=== PATIENT | male | born 1965 | race Caucasian/White ===

== ENCOUNTER 2017-01-27 14:45 | Emergency (ER) | payer OTHER ==
--- NOTE | 2017-01-27 16:48 | ED CLINICAL REPORT ---
Clinical Report - Physicians/Mid Levels [facility] [address] [place] [address] 01/27/2017 14:48 Patient: CAIT SOLARES Time Seen: 15:41; initial patient contact, initial documentation, patient care assumed. Arrived- By private vehicle. Historian- patient. HISTORY OF PRESENT ILLNESS Chief Complaint: ABDOMINAL PAIN. At its maximum, severity described as mild. When seen in the E.D., severity described as mild. Modifying factors. Not worsened by anything. Not relieved by anything. It is described as "pain". No radiation. It is described as located in the left pelvis. This started about 3 years ago and is still present. No nausea, loss of appetite, vomiting or diarrhea. No additional abdominal pain. (pt telling me and nurse, that he came because he wants surgery done now, and he can't have surgery done unless he has place to stay after, he is homeless, but says he has RV, but police won't let him park it anywhere, says he saw Dr Lynne in Jul and was dx with the hernia and was told it needed surgery, but he didn't do surgery then due to money and having no help or place to stay after). No recent travel. Similar symptoms previously: Chronically, as bad. Recent medical care: The patient was seen recently in a clinic. ( went to clinic next door and now here). REVIEW OF SYSTEMS No constipation, black stools, hematemesis, difficulty with urination or pain with urination. No urinary frequency, bloody stools, fever, chest pain or difficulty breathing. All systems otherwise negative, except as recorded above. PAST HISTORY See nurses notes. PROBLEMS: Lifestyle / Substance Problems. URI. COPD - Chronic Obstructive Pulmonary Disease. Immunizations. Hypertension. --15:30 Moy Mills R.N. SOCIAL HISTORY Heavy tobacco smoker. Occasional alcohol use. History of drug use: marijuana. No recent travel. Is a local resident. FAMILY HISTORY Negative. ADDITIONAL NOTES The nursing notes have been reviewed with agreement regarding the chief complaint, HPI, ROS, PMH and patient medications and allergies. PHYSICAL EXAM Vital Signs: 01/27/2017 15:22 BP: 118/76. HR: 66. RR: 20. O2 saturation: 98%. Temp: 97.6 F. Have been reviewed as normal and appear to be correct. Appearance: Alert. Oriented X3. No acute distress. Anxious. (pt agitated, cussing and restless in room). Eyes: Pupils equal, round and reactive to light. Eyes normal inspection. Neck: Normal inspection. Neck supple. CVS: Normal heart rate and rhythm. Heart sounds normal. Pulses normal. Respiratory: No respiratory distress. Breath sounds normal. Chest nontender. Abdomen: Soft and nontender. Bowel sounds normal. No organomegaly. Small mass present in the left lower quadrant. No tender or pulsatile mass present. No guarding present. Mass present. Back: Normal inspection. Skin: Skin warm and dry. Normal skin color. No rash. Normal skin turgor. Extremities: Extremities exhibit normal ROM. No lower extremity edema. Neuro: Oriented X 3. No motor deficit. No sensory deficit. LABS, X-RAYS, AND EKG Pelvic Sonogram: . 1.4 cm L inguinal hernia, no bowel incarceration or strangulation, verbal report given by [employer] deven Fletcher. 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 Dr Newton called re US report, possible hernia vs fat. 01/27/2017 17:02 BP: 122/80. HR: 64. RR: 20. O2 saturation: 96%. Temp: 98.6 F. Vital Signs: have been reviewed as normal and appear to be correct. Patient counseled in person regarding the patient's stable condition, test results and diagnosis. Differential Diagnosis: Other possible considerations: inguinal hernia, incarcerated hernia, strangulation of bowel, abscess, fatty tumor, lymphadenopathy. Above considerations are based on history, physical exam, reassessment and other information. Differential diagnosis was discussed with patient. Disposition: Discharged home in good and unchanged condition (16:48). Condition: good and stable. CLINICAL IMPRESSION Recurrent left inguinal hernia. No reducible hernia, incarcerated hernia, obstruction or gangrene. INSTRUCTIONS Warnings: GENERAL WARNINGS: Return or contact your physician immediately if your condition worsens or changes unexpectedly, if not improving as expected, or if other problems arise. SPECIFICALLY, return if you develop pain in the abdomen, fever, the inability to keep fluids down, blood in vomitus, blood in diarrhea, fainting or lightheadedness. Prescription Medications: Naprosyn 500 mg tablets: take 1 orally every 12 hours as needed for pain. Dispense twenty (20). No refills. Substitution is permissible. Understanding of the discharge instructions verbalized by patient. Follow-up with: Dustin Lynne MD, General Surgeon, , [facility], [address] [place] [address] Follow up in about three days even if well. Call for an appointment. Summary of care provided to patient. (Electronically signed by Radha Guillory A.R.N.P. 01/27/2017 17:13)
--- NOTE | 2017-01-27 16:48 | ED ORDER SUMMARY ---
..... Patient: CAIT SOLARES OrderSheet [facility] VisitID: [id number] [place] [address] 51y, M Registration Date/Time: 01/27/2017 ORDER SHEET Weight: 71.6 kg (stated) Allergies: No Known Drug Allergy GENERAL ORDERS: US Pelvic Complete Urgent (15:57 01/27/2017 HBivenkrista A.R.N.P.) (Ack 16:10 PWeiler ER Tech1) (16:48 PWeiler ER Tech1) MEDICATION ORDERS: IV FLUIDS: ORDER SHEET NOTES: [Electronically signed by Radha GuilloryR.N.PJulius (17:13 01/27/2017)] [Electronically signed by Moy Mills R.N. (12:57 01/28/2017)] [Electronically locked/signed by Moy Mills R.N. (12:57 01/28/2017)]
--- NOTE | 2017-01-27 16:48 | ED NURSING NOTES ---
Clinical Report - Nurses [facility] [address] [address] 01/27/2017 14:48 [id number] Triage time 15:22. Acuity: LEVEL 3. Alert. No acute distress. --15:33 Moy Mills R.N. 15:22 01/27/17. BP: 118/76. HR: 66. RR: 20. O2 saturation: 98%. Temp: 97.6 F. Pain level now 0/10. --15:33 Moy Mills R.N. Chief Complaint: (Hernia). --17:06 Moy Mills R.N. Weight: 71.6 kg stated. Height/Length: 67 inches Per Patient. BMI: 24.7. --15:31 Moy Mills R.N. Medications Acetaminophen Oral. --15:25 Moy Mills R.N. Allergies No Known Drug Allergy. --15:24 Moy Mills R.N. History Arrived by private vehicle. Historian: patient. This occurred (3 years ago). ( Left groin). 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 SOCIAL HX: Current every day smoker. History of drug use. No alcohol use. FALL RISK ASSESSMENT: Fall risk assessment completed. No fall risk identified. NUTRITIONAL RISK ASSESSMENT: The nutritional risk assessment revealed no deficiencies. FUNCTIONAL ASSESSMENT: Functional assessment: no impairments noted. LEARNING NEEDS ASSESSMENT: The learning needs assessment revealed no barriers. SKIN INTEGRITY ASSESSMENT: Skin integrity risk assessment completed. No skin integrity risk identified. --15:33 Moy Mills R.N. ( Patient to ER complaining of 3 year history of inguinal hernia that usually does not cause him pain, but some constipation. States that the Dr King) at [facility] told him it is a hernia and that it needs to be repaired. Patient went to see Dr Lynne, but does not have the right kind of insurance and so he came here to see if we could repair his hernia.). --16:30 Moy Mills R.N. ( Patient was told in July that he has a hernia. He states he has had the hernia for 3 years.). --17:06 Moy Mills R.N. PROBLEMS: Lifestyle / Substance Problems. URI. COPD - Chronic Obstructive Pulmonary Disease. Immunizations. Hypertension. --15:30 Moy Mills R.N. Interventions ID band on patient. --15:33 Moy Mills R.N. PHYSICAL ASSESSMENT GENERAL / NEURO / PSYCH: Alert. Oriented X 4. Appears in no acute distress. SKIN: Skin is warm and dry. --15:35 Moy Mills R.N. NURSING PROGRESS NOTES Call light placed in reach. Bed placed in lowest position. --15:35 Moy Mills R.N. 18:00. ( Ultrasound in progress). --16:31 Moy Mills R.N. ( Explained reason for delay). --16:39 Moy Mills R.N. DISPOSITION / DISCHARGE No learning barriers present. Discharge instructions provided and reviewed with the patient. Patient verbalized understanding. Written instructions provided in Mohawk. The patient was discharged by the nurse practitioner. He was discharged home. --17:04 Moy Mills R.N. 17:02 01/27/17. BP: 122/80. HR: 64. RR: 20. O2 saturation: 96%. Temp: 98.6 F. Pain level now 0/10. --17:04 Moy Mills R.N. Locked/Released at 01/28/2017 12:57 by Moy Mills R.N.
--- NOTE | 2017-01-27 16:48 | ED CLINICAL REPORT ---
Clinical Report - Physicians/Mid Levels [facility] [address] [place] [address] 01/27/2017 14:48 Patient: CAIT SOLARES Time Seen: 15:41; initial patient contact, initial documentation, patient care assumed. Arrived- By private vehicle. Historian- patient. HISTORY OF PRESENT ILLNESS Chief Complaint: ABDOMINAL PAIN. At its maximum, severity described as mild. When seen in the E.D., severity described as mild. Modifying factors. Not worsened by anything. Not relieved by anything. It is described as "pain". No radiation. It is described as located in the left pelvis. This started about 3 years ago and is still present. No nausea, loss of appetite, vomiting or diarrhea. No additional abdominal pain. (pt telling me and nurse, that he came because he wants surgery done now, and he can't have surgery done unless he has place to stay after, he is homeless, but says he has RV, but police won't let him park it anywhere, says he saw Dr Lynne in Jul and was dx with the hernia and was told it needed surgery, but he didn't do surgery then due to money and having no help or place to stay after). No recent travel. Similar symptoms previously: Chronically, as bad. Recent medical care: The patient was seen recently in a clinic. ( went to clinic next door and now here). REVIEW OF SYSTEMS No constipation, black stools, hematemesis, difficulty with urination or pain with urination. No urinary frequency, bloody stools, fever, chest pain or difficulty breathing. All systems otherwise negative, except as recorded above. PAST HISTORY See nurses notes. PROBLEMS: Lifestyle / Substance Problems. URI. COPD - Chronic Obstructive Pulmonary Disease. Immunizations. Hypertension. --15:30 Moy Mills R.N. SOCIAL HISTORY Heavy tobacco smoker. Occasional alcohol use. History of drug use: marijuana. No recent travel. Is a local resident. FAMILY HISTORY Negative. ADDITIONAL NOTES The nursing notes have been reviewed with agreement regarding the chief complaint, HPI, ROS, PMH and patient medications and allergies. PHYSICAL EXAM Vital Signs: 01/27/2017 15:22 BP: 118/76. HR: 66. RR: 20. O2 saturation: 98%. Temp: 97.6 F. Have been reviewed as normal and appear to be correct. Appearance: Alert. Oriented X3. No acute distress. Anxious. (pt agitated, cussing and restless in room). Eyes: Pupils equal, round and reactive to light. Eyes normal inspection. Neck: Normal inspection. Neck supple. CVS: Normal heart rate and rhythm. Heart sounds normal. Pulses normal. Respiratory: No respiratory distress. Breath sounds normal. Chest nontender. Abdomen: Soft and nontender. Bowel sounds normal. No organomegaly. Small mass present in the left lower quadrant. No tender or pulsatile mass present. No guarding present. Mass present. Back: Normal inspection. Skin: Skin warm and dry. Normal skin color. No rash. Normal skin turgor. Extremities: Extremities exhibit normal ROM. No lower extremity edema. Neuro: Oriented X 3. No motor deficit. No sensory deficit. LABS, X-RAYS, AND EKG Pelvic Sonogram: . 1.4 cm L inguinal hernia, no bowel incarceration or strangulation, verbal report given by [employer] deven Fletcher. 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 Dr Newton called re US report, possible hernia vs fat. 01/27/2017 17:02 BP: 122/80. HR: 64. RR: 20. O2 saturation: 96%. Temp: 98.6 F. Vital Signs: have been reviewed as normal and appear to be correct. Patient counseled in person regarding the patient's stable condition, test results and diagnosis. Differential Diagnosis: Other possible considerations: inguinal hernia, incarcerated hernia, strangulation of bowel, abscess, fatty tumor, lymphadenopathy. Above considerations are based on history, physical exam, reassessment and other information. Differential diagnosis was discussed with patient. Disposition: Discharged home in good and unchanged condition (16:48). Condition: good and stable. CLINICAL IMPRESSION Recurrent left inguinal hernia. No reducible hernia, incarcerated hernia, obstruction or gangrene. INSTRUCTIONS Warnings: GENERAL WARNINGS: Return or contact your physician immediately if your condition worsens or changes unexpectedly, if not improving as expected, or if other problems arise. SPECIFICALLY, return if you develop pain in the abdomen, fever, the inability to keep fluids down, blood in vomitus, blood in diarrhea, fainting or lightheadedness. Prescription Medications: Naprosyn 500 mg tablets: take 1 orally every 12 hours as needed for pain. Dispense twenty (20). No refills. Substitution is permissible. Understanding of the discharge instructions verbalized by patient. Follow-up with: Dustin Lynne MD, General Surgeon, , [facility], [address] [place] [address] Follow up in about three days even if well. Call for an appointment. Summary of care provided to patient. (Electronically signed by Radha Guillory A.R.N.P. 01/27/2017 17:13)
--- NOTE | 2017-01-27 16:48 | ED NURSING NOTES ---
Clinical Report - Nurses [facility] [place] [address] [address] 01/27/2017 14:48 [id number] TRI[facility] Triage time 15:22. Acuity: LEVEL 3. Alert. No acute distress. --15:33 Moy Mills R.N. 15:22 01/27/17. BP: 118/76. HR: 66. RR: 20. O2 saturation: 98%. Temp: 97.6 F. Pain level now 0/10. --15:33 Moy Mills R.N. Chief Complaint: (Hernia). --17:06 Moy Mills R.N. Weight: 71.6 kg stated. Height/Length: 67 inches Per Patient. BMI: 24.7. --15:31 Moy Mills R.N. Medications Acetaminophen Oral. --15:25 Moy Mills R.N. Allergies No Known Drug Allergy. --15:24 Moy Mills R.N. History Arrived by private vehicle. Historian: patient. This occurred (3 years ago). ( Left groin). 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 SOCIAL HX: Current every day smoker. History of drug use. No alcohol use. FALL RISK ASSESSMENT: Fall risk assessment completed. No fall risk identified. NUTRITIONAL RISK ASSESSMENT: The nutritional risk assessment revealed no deficiencies. FUNCTIONAL ASSESSMENT: Functional assessment: no impairments noted. LEARNING NEEDS ASSESSMENT: The learning needs assessment revealed no barriers. SKIN INTEGRITY ASSESSMENT: Skin integrity risk assessment completed. No skin integrity risk identified. --15:33 Moy Mills R.N. ( Patient to ER complaining of 3 year history of inguinal hernia that usually does not cause him pain, but some constipation. States that the Dr King) at [facility] told him it is a hernia and that it needs to be repaired. Patient went to see Dr Lynne, but does not have the right kind of insurance and so he came here to see if we could repair his hernia.). --16:30 Moy Mills R.N. ( Patient was told in July that he has a hernia. He states he has had the hernia for 3 years.). --17:06 Moy Mills R.N. PROBLEMS: Lifestyle / Substance Problems. URI. COPD - Chronic Obstructive Pulmonary Disease. Immunizations. Hypertension. --15:30 Moy Mills R.N. Interventions ID band on patient. --15:33 Moy Mills R.N. PHYSICAL ASSESSMENT GENERAL / NEURO / PSYCH: Alert. Oriented X 4. Appears in no acute distress. SKIN: Skin is warm and dry. --15:35 Moy Mills R.N. NURSING PROGRESS NOTES Call light placed in reach. Bed placed in lowest position. --15:35 Moy Mills R.N. 18:00. ( Ultrasound in progress). --16:31 Moy Mills R.N. ( Explained reason for delay). --16:39 Moy Mills R.N. DISPOSITION / DISCHARGE No learning barriers present. Discharge instructions provided and reviewed with the patient. Patient verbalized understanding. Written instructions provided in Vietnamese. The patient was discharged by the nurse practitioner. He was discharged home. --17:04 Moy Mills R.N. 17:02 01/27/17. BP: 122/80. HR: 64. RR: 20. O2 saturation: 96%. Temp: 98.6 F. Pain level now 0/10. --17:04 Moy Mills R.N. Locked/Released at 01/28/2017 12:57 by Moy Mills R.N.
--- NOTE | 2017-01-27 16:48 | ED ORDER SUMMARY ---
..... Patient: CAIT SOLARES OrderSheet [facility] VisitID: [id number] [place] [address] 51y, M Registration Date/Time: 01/27/2017 ORDER SHEET Weight: 71.6 kg (stated) Allergies: No Known Drug Allergy GENERAL ORDERS: US Pelvic Complete Urgent (15:57 01/27/2017 HBivenkrista A.R.N.P.) (Ack 16:10 PWeiler ER Tech1) (16:48 PWeiler ER Tech1) MEDICATION ORDERS: IV FLUIDS: ORDER SHEET NOTES: [Electronically signed by Radha GuilloryR.N.PJulius (17:13 01/27/2017)] [Electronically signed by Moy Mills R.N. (12:57 01/28/2017)] [Electronically locked/signed by Moy Mills R.N. (12:57 01/28/2017)]
--- NOTE | 2017-01-27 17:09 | DIAGNOSTIC IMAGING REPORT ---
PROCEDURE: US PELVIC LIMITED INDICATION: Palpable area left groin. TECHNIQUE: Kerr scale and color Doppler sonographic images of the left inguinal region were obtained, without and with Valsalva. COMPARISON: None. FINDINGS: There is a 1.4 cm defect in the left lower quadrant abdominal wall which demonstrates protrusion of small bowel lipomatous tissue with Valsalva (spontaneously reduces). IMPRESSION: 1. There is a left inguinal hernia defect containing small bowel and lipomatous tissue, and spontaneously reduces. 2. Findings discussed with NINA Evans.
--- NOTE | 2017-01-28 12:57 | ED DISCHARGE INSTRUCTIONS ---
Patient: CAIT SOLARES General Instructions [facility] VisitID: [id number] [address] [place], [place] [id number] 51y, M Registration Date/Time: 01/27/2017 Recurrent left inguinal hernia. No reducible hernia, incarcerated hernia, obstruction or gangrene. INSTRUCTIONS Warnings: GENERAL WARNINGS: Return or contact your physician immediately if your condition worsens or changes unexpectedly, if not improving as expected, or if other problems arise. SPECIFICALLY, return if you develop pain in the abdomen, fever, the inability to keep fluids down, blood in vomitus, blood in diarrhea, fainting or lightheadedness. Prescription Medications: Naprosyn 500 mg tablets: take 1 orally every 12 hours as needed for pain. Dispense twenty (20). No refills. Substitution is permissible. Understanding of the discharge instructions verbalized by patient. Follow-up with: Dustin Lynne MD, General Surgeon, , [facility], [address] [place] [address] Follow up in about three days even if well. Call for an appointment. Summary of care provided to patient. ADDITIONAL INFORMATION Hernia [Adult] A hernia is a bulge of the intestines or surrounding tissues through a tear in the muscle of the abdomen or groin. This may occur as a result of excessive coughing, heavy lifting or being overweight. It can also occur at the site of prior surgery. When a hernia first appears it may be painful due to stretching and tearing of the muscle fibers. When you lie down, the bulge should reduce in size or disappear completely. If it does not, and you are unable to flatten it with your hand, medical attention is needed at once. Home Care: Avoid heavy lifting and straining or any activities that cause pain in the hernia. Follow Up with your physician as directed by our staff. Get Prompt Medical Attention if any of the following occur: Increasing size of the hernia Increasing pain in the hernia A hernia that does not get smaller when you lie down Hardening of the hernia Abdominal swelling, fever or repeated vomiting Pain moves to the lower right abdomen (just below the waistline) or spreads to the back Naproxen Sodium Oral tablet What is this medicine? NAPROXEN (na PROX en) is a non-steroidal anti-inflammatory drug (NSAID). It is used to reduce swelling and to treat pain. This medicine may be used for dental pain, headache, or painful monthly periods. It is also used for painful joint and muscular problems such as arthritis, tendinitis, bursitis, and gout. How should I use this medicine? Take this medicine by mouth with a glass of water. Follow the directions on the prescription label. Take it with food if your stomach gets upset. Try to not lie down for at least 10 minutes after you take it. Take your medicine at regular intervals. Do not take your medicine more often than directed. Long-term, continuous use may increase the risk of heart attack or stroke. A special MedGuide will be given to you by the pharmacist with each prescription and refill. Be sure to read this information carefully each time. Talk to your town justice regarding the use of this medicine in children. Special care may be needed. What side effects may I notice from receiving this medicine? Side effects that you should report to your doctor or health neonatal intensive care nurse as soon as possible: black or bloody stools, blood in the urine or vomit blurred vision chest pain difficulty breathing or wheezing nausea or vomiting severe stomach pain skin rash, skin redness, blistering or peeling skin, hives, or itching slurred speech or weakness on one side of the body swelling of eyelids, throat, lips unexplained weight gain or swelling unusually weak or tired yellowing of eyes or skin Side effects that usually do not require medical attention (report to your doctor or health neonatal intensive care nurse if they continue or are bothersome): constipation headache heartburn What may interact with this medicine? alcohol aspirin cidofovir diuretics lithium methotrexate other drugs for inflammation like ketorolac or prednisone pemetrexed probenecid warfarin What if I miss a dose? If you miss a dose, take it as soon as you can. If it is almost time for your next dose, take only that dose. Do not take double or extra doses. Where should I keep my medicine? Keep out of the reach of children. Store at room temperature between 15 and 30 degrees C (59 and 86 degrees F). Keep container tightly closed. Throw away any unused medicine after the expiration date. What should I tell my health care provider before I take this medicine? They need to know if you have any of these conditions: asthma cigarette smoker drink more than 3 alcohol containing drinks a day heart disease or circulation problems such as heart failure or leg edema (fluid retention) high blood pressure kidney disease liver disease stomach bleeding or ulcers an unusual or allergic reaction to naproxen, aspirin, other NSAIDs, other medicines, foods, dyes, or preservatives or trying to get breast-feeding What should I watch for while using this medicine? Tell your doctor or health neonatal intensive care nurse if your pain does not get better. Talk to your doctor before taking another medicine for pain. Do not treat yourself. This medicine does not prevent heart attack or stroke. In fact, this medicine may increase the chance of a heart attack or stroke. The chance may increase with longer use of this medicine and in people who have heart disease. If you take aspirin to prevent heart attack or stroke, talk with your doctor or health neonatal intensive care nurse. Do not take other medicines that contain aspirin, ibuprofen, or naproxen with this medicine. Side effects such as stomach upset, nausea, or ulcers may be more likely to occur. Many medicines available without a prescription should not be taken with this medicine. This medicine can cause ulcers and bleeding in the stomach and intestines at any time during treatment. Do not smoke cigarettes or drink alcohol. These increase irritation to your stomach and can make it more susceptible to damage from this medicine. Ulcers and bleeding can happen without warning symptoms and can cause . You may get drowsy or dizzy. Do not drive, use machinery, or do anything that needs mental alertness until you know how this medicine affects you. Do not stand or sit up quickly, especially if you are an older patient. This reduces the risk of dizzy or fainting spells. This medicine can cause you to bleed more easily. Try to avoid damage to your teeth and gums when you brush or floss your teeth. You have been given the following additional information: Hernia (Inguinal, Ventral, Umbilical) Naproxen Sodium Oral tablet (Electronically signed by Radha Guillory A.R.N.P. 01/27/2017 17:13)
--- NOTE | 2017-01-28 12:57 | ED MED RECONCILIATION SUMMARY ---
Patient: CAIT SOLARES Medication Reconciliation Report [facility] VisitID: [id number] [address] [place] [address] 51y, M Registration Date/Time: 01/27/2017 Weight: 71.6 kg Height/Length: 67 in. BMI: 24.7 ALLERGIES: No Known Drug Allergy The patient's Home Medications are listed below: THE FOLLOWING MEDICATIONS NEED TO BE RECONCILED: Acetaminophen Oral The source(s) of the original Home Medication information: Not obtained. The following Medications were given to the patient in the Emergency Department: None. The following Medications were prescribed to the patient: Naprosyn 500 mg tablets: take 1 orally every 12 hours as needed for pain. Dispense twenty (20). No refills. Substitution is permissible. -- Radha Guillory A.R.N.P.
--- NOTE | 2017-01-28 12:57 | ED MAR SUMMARY ---
..... Medication Administration Record [facility] [address] [place], [place] [id number] Patient: CAIT SOLARES Visit ID: [id number] 51y, M Weight: 71.6 kg Height/Length: 67 in BMI: 24.7 ALLERGIES: No Known Drug Allergy
--- NOTE | 2017-01-28 12:57 | ED DISCHARGE INSTRUCTIONS ---
Patient: CAIT SOLARES General Instructions [facility] VisitID: [id number] [address] [place], [place] [id number] 51y, M Registration Date/Time: 01/27/2017 Recurrent left inguinal hernia. No reducible hernia, incarcerated hernia, obstruction or gangrene. INSTRUCTIONS Warnings: GENERAL WARNINGS: Return or contact your physician immediately if your condition worsens or changes unexpectedly, if not improving as expected, or if other problems arise. SPECIFICALLY, return if you develop pain in the abdomen, fever, the inability to keep fluids down, blood in vomitus, blood in diarrhea, fainting or lightheadedness. Prescription Medications: Naprosyn 500 mg tablets: take 1 orally every 12 hours as needed for pain. Dispense twenty (20). No refills. Substitution is permissible. Understanding of the discharge instructions verbalized by patient. Follow-up with: Dustin Lynne MD, General Surgeon, , [facility], [address] [place] [address] Follow up in about three days even if well. Call for an appointment. Summary of care provided to patient. ADDITIONAL INFORMATION Hernia [Adult] A hernia is a bulge of the intestines or surrounding tissues through a tear in the muscle of the abdomen or groin. This may occur as a result of excessive coughing, heavy lifting or being overweight. It can also occur at the site of prior surgery. When a hernia first appears it may be painful due to stretching and tearing of the muscle fibers. When you lie down, the bulge should reduce in size or disappear completely. If it does not, and you are unable to flatten it with your hand, medical attention is needed at once. Home Care: Avoid heavy lifting and straining or any activities that cause pain in the hernia. Follow Up with your physician as directed by our staff. Get Prompt Medical Attention if any of the following occur: Increasing size of the hernia Increasing pain in the hernia A hernia that does not get smaller when you lie down Hardening of the hernia Abdominal swelling, fever or repeated vomiting Pain moves to the lower right abdomen (just below the waistline) or spreads to the back Naproxen Sodium Oral tablet What is this medicine? NAPROXEN (na PROX en) is a non-steroidal anti-inflammatory drug (NSAID). It is used to reduce swelling and to treat pain. This medicine may be used for dental pain, headache, or painful monthly periods. It is also used for painful joint and muscular problems such as arthritis, tendinitis, bursitis, and gout. How should I use this medicine? Take this medicine by mouth with a glass of water. Follow the directions on the prescription label. Take it with food if your stomach gets upset. Try to not lie down for at least 10 minutes after you take it. Take your medicine at regular intervals. Do not take your medicine more often than directed. Long-term, continuous use may increase the risk of heart attack or stroke. A special MedGuide will be given to you by the pharmacist with each prescription and refill. Be sure to read this information carefully each time. Talk to your prover regarding the use of this medicine in children. Special care may be needed. What side effects may I notice from receiving this medicine? Side effects that you should report to your doctor or health body care manager as soon as possible: black or bloody stools, blood in the urine or vomit blurred vision chest pain difficulty breathing or wheezing nausea or vomiting severe stomach pain skin rash, skin redness, blistering or peeling skin, hives, or itching slurred speech or weakness on one side of the body swelling of eyelids, throat, lips unexplained weight gain or swelling unusually weak or tired yellowing of eyes or skin Side effects that usually do not require medical attention (report to your doctor or health body care manager if they continue or are bothersome): constipation headache heartburn What may interact with this medicine? alcohol aspirin cidofovir diuretics lithium methotrexate other drugs for inflammation like ketorolac or prednisone pemetrexed probenecid warfarin What if I miss a dose? If you miss a dose, take it as soon as you can. If it is almost time for your next dose, take only that dose. Do not take double or extra doses. Where should I keep my medicine? Keep out of the reach of children. Store at room temperature between 15 and 30 degrees C (59 and 86 degrees F). Keep container tightly closed. Throw away any unused medicine after the expiration date. What should I tell my health care provider before I take this medicine? They need to know if you have any of these conditions: asthma cigarette smoker drink more than 3 alcohol containing drinks a day heart disease or circulation problems such as heart failure or leg edema (fluid retention) high blood pressure kidney disease liver disease stomach bleeding or ulcers an unusual or allergic reaction to naproxen, aspirin, other NSAIDs, other medicines, foods, dyes, or preservatives or trying to get breast-feeding What should I watch for while using this medicine? Tell your doctor or health body care manager if your pain does not get better. Talk to your doctor before taking another medicine for pain. Do not treat yourself. This medicine does not prevent heart attack or stroke. In fact, this medicine may increase the chance of a heart attack or stroke. The chance may increase with longer use of this medicine and in people who have heart disease. If you take aspirin to prevent heart attack or stroke, talk with your doctor or health body care manager. Do not take other medicines that contain aspirin, ibuprofen, or naproxen with this medicine. Side effects such as stomach upset, nausea, or ulcers may be more likely to occur. Many medicines available without a prescription should not be taken with this medicine. This medicine can cause ulcers and bleeding in the stomach and intestines at any time during treatment. Do not smoke cigarettes or drink alcohol. These increase irritation to your stomach and can make it more susceptible to damage from this medicine. Ulcers and bleeding can happen without warning symptoms and can cause . You may get drowsy or dizzy. Do not drive, use machinery, or do anything that needs mental alertness until you know how this medicine affects you. Do not stand or sit up quickly, especially if you are an older patient. This reduces the risk of dizzy or fainting spells. This medicine can cause you to bleed more easily. Try to avoid damage to your teeth and gums when you brush or floss your teeth. You have been given the following additional information: Hernia (Inguinal, Ventral, Umbilical) Naproxen Sodium Oral tablet (Electronically signed by Radha Guillory A.R.N.P. 01/27/2017 17:13)
--- NOTE | 2017-01-28 12:57 | ED MED RECONCILIATION SUMMARY ---
Patient: CAIT SOLARES Medication Reconciliation Report [facility] VisitID: [id number] [address] [place] [address] 51y, M Registration Date/Time: 01/27/2017 Weight: 71.6 kg Height/Length: 67 in. BMI: 24.7 ALLERGIES: No Known Drug Allergy The patient's Home Medications are listed below: THE FOLLOWING MEDICATIONS NEED TO BE RECONCILED: Acetaminophen Oral The source(s) of the original Home Medication information: Not obtained. The following Medications were given to the patient in the Emergency Department: None. The following Medications were prescribed to the patient: Naprosyn 500 mg tablets: take 1 orally every 12 hours as needed for pain. Dispense twenty (20). No refills. Substitution is permissible. -- Radha Guillory A.R.N.P.
--- NOTE | 2017-01-28 12:57 | ED MAR SUMMARY ---
..... Medication Administration Record [facility] [address] [place], [place] [id number] Patient: CAIT SOLARES Visit ID: [id number] 51y, M Weight: 71.6 kg Height/Length: 67 in BMI: 24.7 ALLERGIES: No Known Drug Allergy
== END 2017-01-27 17:00 | disposition home or self-care (01) ==
LOC: ED SRH 14:45
DX: K40.91 Unilateral inguinal hernia, without obstruction or gangrene, recurrent (principal); J44.9 Chronic obstructive pulmonary disease, unspecified; I10 Essential (primary) hypertension; F17.200 Nicotine dependence, unspecified, uncomplicated